=== PATIENT | female | born 1990 | race Caucasian/White ===

== ENCOUNTER 2016-11-14 12:51 | Emergency (ER) | payer MEDICAID, OTHER ==
[2016-11-14] MEDS ORDERED: IPRATRPIUM/ALBUTEROL 0.5/2.5MG 3 ML NEBU. ONE (12:58)
[2016-11-14] MEDS ORDERED: methylPREDNISolone SOD SUCC PF 125 MG/2 ML VIAL. IV ONE (13:00)
[2016-11-14] MEDS ORDERED: IPRATRPIUM/ALBUTEROL 0.5/2.5MG 3 ML NEBU. NEB ONE (13:00)
--- NOTE | 2016-11-14 13:41 | RAD ---
Indication: Cough and short of breath. Technique: Two-view chest radiograph was obtained. Comparison is from November 23, 2013. Findings: The lungs remain clear. The heart is not enlarged and the pulmonary vasculature does not appear prominent. There is no pleural effusion. The bony structures are intact. Impression: No acute thoracic findings.
[2016-11-14 13:46] LABS: BASO % 0 % (0-3); EOS % 0 % (0-3); HEMATOCRIT 43.5 % (36.0-47.0); HEMOGLOBIN 14.5 g/dL (12.0-15.5); LYMPH # 0.9 x10^3/uL (1.0-4.8); LYMPH % 4 % (24-48); MEAN CORPUSCULAR HEMOGLOBIN 30 pg (25-35); MEAN CORPUSCULAR HGB CONC 33 g/dL (31-37); MEAN CORPUSCULAR VOLUME 90 fL (79-100); MONO # 0.9 x10^3/uL (0.0-1.1); MONO % 4 % (0-9); NEUT # 19.3 x10^3uL (1.8-7.7); NEUT % 91 % (31-73); PLATELET COUNT 304 x10^3/uL (140-400); RED BLOOD COUNT 4.85 x10^6/uL (3.50-5.40); RED CELL DISTRIBUTION WIDTH 13.1 % (11.5-14.5); WHITE BLOOD COUNT 21.2 x10^3/uL (4.0-11.0)
[2016-11-14 13:59] LABS: ALBUMIN/GLOBULIN RATIO 1.1 (1.0-1.7); CALCIUM 9.1 mg/dL (8.5-10.1); CREATININE 0.7 mg/dL (0.6-1.0); GFR 101.1; POTASSIUM 3.5 mmol/L (3.5-5.1); TOTAL BILIRUBIN 0.3 mg/dL (0.2-1.0); TOTAL PROTEIN 7.8 g/dL (6.4-8.2)
[2016-11-14 14:19] LABS: % BANDS 3 % (0-9); % BASOS 0 % (0-3); % EOS 0 % (0-5); % LYMPHS 5 % (24-48); % MONOS 0 % (0-10); % SEGS 92 % (35-66); PLT ESTIMATE ADEQUATE (ADEQUATE)
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
== END 2016-11-14 15:39 | disposition left against medical advice (07) ==
LOC: ER 12:51
DX: J45.901 Unspecified asthma with (acute) exacerbation (principal); R00.0 Tachycardia, unspecified; F17.210 Nicotine dependence, cigarettes, uncomplicated; F10.10 Alcohol abuse, uncomplicated; F15.10 Other stimulant abuse, uncomplicated
CPT/HCPCS: 36415; 71020; 80053; 82550; 83605; 84484; 85007; 85027; 85379; 94640; 96374; 99285; G0480; J2930; J7620